=== PATIENT | male | born 1985 | race Hispanic/Latino ===

== ENCOUNTER → 2018-12-03 | Outpatient (CLI) | payer OTHER ==
[~2018-12-03] MED LIST: IOHEXOL-350 75 ML VIAL IV ONE
== END | disposition home or self-care (01) ==
LOC: RAH 10:13
PROVIDERS: ATTEND Internal Medicine
DX: N48.89 Other specified disorders of penis (principal); N50.9 Disorder of male genital organs, unspecified
CPT/HCPCS: 74178; Q9967

== ENCOUNTER 2025-03-11 10:02 | Emergency (ER) | payer OTHER ==
[~2025-03-11] VITALS: Ht 180.3 cm; Wt 117.9 kg
--- NOTE | 2025-03-11 10:15 | ERN ---
ED Note History of Present Illness Stated Complaint: CP Chief Complaint: Chest Pain Time Seen by MD: 10:07 Dictation: PATIENT IS A 39-YEAR-OLD DIABETIC MALE THAT IS HERE TODAY VISITING HIS FATHER IN THE EMERGENCY ROOM. HIS FATHER IS HERE FOR CHEST PAIN AND PRESSURE, WHEN THE PATIENT GOT HERE AND WAS VISITING HIS FATHER IN TRIAGE, HE STARTED COMPLAINING OF CHEST PAIN PRESSURE ADDITIONALLY. STATES THE PAIN DOES NOT RADIATE, NO NAUSEA VOMITING NO JAW PAIN NO ARM PAIN NO BACK PAIN. STATES HE HAS HAD SIMILAR PAIN IN THE PAST WHEN HE IS ANXIOUS SAYS HIS DOCTOR IS [facility] AND PRESCRIBES HIS METFORMIN HOWEVER, HE HAS NEVER GONE TO SEE HIS DOCTOR FOR CHEST PAIN PRESSURE. PATIENT NOTED TO BE EXTREMELY ANXIOUS. Allergies: Coded Allergies: No Known Drug Allergies (Unverified Allergy, Unknown, 03/11/25) Past Medical History Past Medical History: Diabetes-Type II RN Note Reviewed/Agreed w/PFSH: Yes Review of System Dictation CONSTITUTIONAL: NEGATIVE EXCEPT FOR HPI HEAD/FACE: NEGATIVE EXCEPT FOR HPI EENT: NEGATIVE EXCEPT FOR HPI RESPIRATORY: NEGATIVE EXCEPT FOR HPI CHEST PAIN/PRESSURE GASTROINTESTINAL/ABDOMINAL: NEGATIVE EXCEPT FOR HPI GENITOURINARY: NEGATIVE EXCEPT FOR HPI MUSCULOSKELETAL: NEGATIVE EXCEPT FOR HPI INTEGUMENTARY: NEGATIVE EXCEPT FOR HPI NEUROLOGICAL/PSYCH: NEGATIVE EXCEPT FOR HPI HEMATOLOGIC/LYMPHATIC: NEGATIVE EXCEPT FOR HPI ALL SYSTEMS NEGATIVE, EXCEPT NOTED ABOVE. 13 POINT REVIEW OF SYSTEMS ASSESSED AND ALL NEGATIVE EXCEPT FOR ABOVE. Initial Vital Sign VS Vital Signs Date Time Temp Pulse Resp B/P (MAP) Pulse Ox O2 Delivery O2 Flow Rate FiO2 03/11/25 10:06 97.5 89 18 143/100 100 Room Air 0 03/11/25 10:15 21 Physical Exam Dictation VITAL SIGNS REVIEWED GENERAL APPEARANCE: ALERT, ORIENTED X 3, MODERATE ACUTE DISTRESS, WELL DEVELOPED, NOURISHED. OBESE/TEARFUL HEAD AND FACE: NON-TRAUMATIC. EYES: PERRL, PINK CONJUNCTIVAS, EYELID NO TRAUMA, ANTERIOR CHAMBER WITH ARCUS SENILIS. EARS: PINNAS INTACT AND NO SIGNS OF TRAUMA OR ERYTHEMA EAR CANALS CLEAR AND NO DISCHARGE TM NO ERYTHEMA NOSE: NO DISCHARGE, NO BLEEDING. OROPHARYNX: MOUTH NORMAL, TONGUE PINK, PHARYNX CLEAR,NO ERYTHEMA, TONSILS NO EXUDATES, NO ABSCESSES NOTED, MUCOUS MEMBRANE MOIST NECK: SUPPLE, NON-TENDER, NO THYROMEGALY, NO MASSES, NO JVD, NO BRUITS BREAST:DEFERRED CHEST:NO TENDERNESS, NO CREPITUS, NO PARADOXICAL MOVEMENT, NO RETRACTIONS LUNGS:CLEAR, WELL-VENTILATED, SYMMETRIC, NO RALES, NO WHEEZING, NO RHONCHI, NO STRIDOR, GOOD BREATH SOUNDS BILATERALLY HEART: REGULAR RATE, REGULAR RHYTHM, NO MURMUR, NO GALLOPS VASCULAR: NO PERIPHERAL EDEMA, ABDOMEN: SOFT, POSITIVE BOWEL SOUNDS, NONDISTENDED, NO GUARDING, NONTENDER, NO REBOUND, NO MASSES NO HEPATOMEGALY, NO SPLENOMEGALY, NO RUBIO'S SIGN, NO HERNIAS. RECTAL: DEFERRED GENITAL: DEFERRED NEUROLOGICAL: NORMAL SPEECH, MOTOR FUNCTION INTACT, SENSORY FUNCTION INTACT MUSCULOSKELETAL: NECK NONTENDER, FULL RANGE OF MOTION, BACK NONTENDER, FULL RANGE OF MOTION, EXTREMITIES: NONTENDER, FULL RANGE OF MOTION SKIN: COLOR PINK, DRY, NO TURGOR, NO RASH, NO LACERATIONS, NO ABRASIONS, NO CONTUSIONS. LYMPHATIC: DEFERRED Results (Laboratory/Radiology) Laboratory/Radiology Laboratory Tests Test 03/11/25 10:48 03/11/25 12:32 Sodium Level 139 mmol/L (136-145) Potassium Level 3.9 mmol/L (3.5-5.1) Chloride Level 103 mmol/L (101-111) Carbon Dioxide Level 30 mmol/L (21-32) Blood Urea Nitrogen 14 mg/dL (7-18) Creatinine 0.9 mg/dL (0.5-1.3) Glomerular Filtration Rate Calc 111 mL/min (>90) Random Glucose 140 mg/dL (70-105) H Total Calcium 9.3 mg/dL (8.5-10.1) Magnesium Level 2.10 mg/dL (1.80-2.40) Troponin I High Sensitivity 4 ng/L (4-75) < 4 ng/L (4-75) L White Blood Count 6.6 K/uL (4.8-10.8) Red Blood Count 4.91 MIL/uL (4.50-6.20) Hemoglobin 14.3 g/dL (14.0-18.0) Hematocrit 42.4 % (42-54) Mean Corpuscular Volume 86.4 fL (79-99) Mean Corpuscular Hemoglobin 29.1 pg (27.0-33.0) Mean Corpuscular Hemoglobin Concent 33.7 g/dL (32.0-36.0) Red Cell Distribution Width 13.0 % (11.0-15.5) Platelet Count 354 K/uL (130-400) Mean Platelet Volume 9.0 fL (7.5-10.5) Immature Granulocyte % (Auto) 0.2 % (0-1) Neutrophils (%) (Auto) 49.3 % (40.0-77.0) Lymphocytes (%) (Auto) 40.0 % (21.0-51.0) Monocytes (%) (Auto) 6.4 % (3.0-13.0) Eosinophils (%) (Auto) 3.0 % (0.0-8.0) Basophils (%) (Auto) 1.1 % (0.0-5.0) Neutrophils # (Auto) 3.3 K/uL (1.8-7.7) Lymphocytes # (Auto) 2.6 K/uL (1.0-4.8) Monocytes # (Auto) 0.4 K/uL (0.1-1.0) Eosinophils # (Auto) 0.20 K/uL (0.00-0.70) Basophils # (Auto) 0.07 K/uL (0.00-0.20) Absolute Immature Granulocyte (auto 0.01 K/uL (0-1) Nucleated Red Blood Cells 0.0 % (0.0-0.19) AM: CR Chest, 1 View. CLINICAL HISTORY: CHEST PAIN COMPARISON: None provided. FINDINGS: LUNGS: The lungs show no infiltrate or other acute finding. PLEURAL SPACES: No pleural effusion or pneumothorax. MEDIASTINUM: Cardiac size and mediastinal contours within normal limits. BONES: No acute osseous abnormality. IMPRESSION: No acute cardiopulmonary pathology is evident. /[facility] Labs Reviewed?: Yes EKG: (+) NSR EKG Comment: EKG NORMAL SINUS RHYTHM/HEART RATE 95/AXIS NORMAL/NO ECTOPY 1328 SECONDS EKGS SINUS RHYTHM/HEART RATE 60/EARLY REPOLARIZATION SEEN V2 THREE AND FOUR. NO AXIS CHANGE HIGH SENSITIVITY TROPONIN ON 2ND DRAW IS LESS THAN FOUR, HEART SCORE IS ONE ED Course ED Course Orders Procedure Category Date Status Time Chest 1vw RAD 03/11/25 Resulted 10:12 12 Lead Ekg Tracing- EKG 03/11/25 Complete Technical 10:12 Magnesium LAB 03/11/25 Complete 10:12 Troponin I High LAB 03/11/25 Complete Sensitivity 10:12 Aspirin 325mg Tab PHA 03/11/25 Complete (Aspirin 325mg Tab) 10:30 Basic Metabolic Panel LAB 03/11/25 Complete 10:12 Cbc With Differential LAB 03/11/25 Complete 12:20 Troponin I High LAB 03/11/25 Complete Sensitivity 12:20 12 Lead Ekg Tracing- EKG 03/11/25 Logged Technical 13:14 Current Medications Medications (Trade) Dose Ordered Sig/Cyndy Route PRN Reason Start Time Stop Time Status Last Admin Dose Admin Aspirin (Aspirin 325mg Tab) 325 mg ONCE ONCE PO 03/11/25 10:30 03/11/25 10:31 DC 03/11/25 10:33 Vital Signs Date Time Temp Pulse Resp B/P (MAP) Pulse Ox O2 Delivery O2 Flow Rate FiO2 03/11/25 10:15 97.5 89 18 143/100 100 Room Air* 0 21 03/11/25 10:06 97.5 89 18 143/100 100 Room Air 0 HEART Score Response (Comments) Value History: Low suspicion (0) 0 EKG: Normal 0 Risk Factors: 1-2 risk factors (+1) 1 Initial Troponin: Normal limit (0) 0 Total 1 Medical Decision Making MDM 1350/MDM: DIFFERENTIAL DIAGNOSIS: ACS/AMI/ELECTROLYTE IMBALANCE/DEHYDRATION/PNEUMONIA/BRONCHITIS/ANXIETY RATIONALE: TESTS CONSIDERED AND ORDERED SECONDARY TO SHARED DECISION MAKING INCLUDE: EKG/LABS/ PREVIOUS OUTSIDE RECORDS REVIEWED: OLD ER VISITS. RISK OF COMPLICATION AND/OR MORBIDITY OR MORTALITY OF PATIENT MANAGEMENT: NONE MEDICATIONS-PER MEDICATION RECONCILIATION NEED FOR HOSPITALIZATION: PATIENT DOES NOT MEET CRITERIA FOR HOSPITALIZATION. RADIOLOGY NO NEED FOR EMERGENCY MAJOR/MINOR SURGERY: NO THERE ARE NO SOCIAL CONCERNS WITH THIS PATIENT. PRESCRIPTION DRUG MANAGEMENT NONE PRESCRIPTIONS WILL INCLUDE SYMPTOMATIC CARE PATIENT'S PRIOR EXTERNAL MEDICAL RECORDS FROM OTHER ER VISITS WERE REVIEWED BY ME INDICATED. PRIOR TESTING AND RESULTS FROM PREVIOUS VISITS WERE REVIEWED. PRIOR TESTS WERE TAKEN INTO ACCOUNT WITH MEDICAL DECISION MAKING AND RESOURCE UTILIZATION, INDEPENDENT HISTORIAN/HISTORIANS WERE USED TO OBTAIN COMPLETE MEDICAL HISTORY. I INDEPENDENTLY INTERPRETED THE TEST THAT WERE PERFORMED, RESULTS WERE REVIEWED BY ME AND CONSIDERED FINDINGS ON RADIOLOGY IF ORDERED. MEDICAL MANAGEMENT AND EXAMINATION INTERPRETATION DISCUSSIONS WERE HAD BY ME WITH OTHER QUALIFIED HEALTHCARE PROFESSIONALS INDICATED FOR THE PATIENT'S CARE. DX & DISP Disposition: Inpatient Decision to Admit Time: 13:51 Departure Impression: Primary Impression: Atypical chest pain Additional Impressions: Anxiety reaction, Diabetes mellitus with hyperglycemia Condition: Stable Additional Instructions: FOLLOW-UP WITH PRIMARY CARE PROVIDER IN 1 TO 2 DAYS. TAKE MEDICATIONS DIRECTED HERE IN THE EMERGENCY ROOM. OKAY TO CONTINUE HOME MEDICATIONS UNLESS OTHERWISE DISCUSSED DURING YOUR VISIT IN THE EMERGENCY ROOM TODAY. RETURN TO YOUR NEAREST EMERGENCY ROOM IF SYMPTOMS WORSEN OR IF THERE IS NO IMPROVEMENT. CALL 911 IF YOU NEED IMMEDIATE ASSISTANCE. TAKE TYLENOL OR MOTRIN [id number] NEEDED AND IF NO CONTRAINDICATIONS ARE PRESENT. INCREASE ORAL HYDRATION. A WOUND CULTURE OR URINE CULTURE WAS ORDERED HERE IN THE EMERGENCY ROOM DEPARTMENT PLEASE FOLLOW-UP WITH PRIMARY CARE PROVIDER AND ADVISE THEM TO GET REPEAT PORTS FROM OUR FACILITY. IF YOU HAD ANY LEFTY WRAP/SPLINTS THAT WERE APPLIED HERE, PLEASE DO NOT REMOVE THEM UNTIL YOU SEE YOUR PRIMARY CARE OR SPECIALTY. TYLENOL OR MOTRIN [id number] NEEDED FOR PAIN. FOLLOW UP WITH YOUR PRIMARY CARE DOCTOR IN THE NEXT 1-2 DAYS NEEDED. Referrals: ARMIN BUI MD (PCP) Time of Disposition: 13:52 I have reviewed the case, and I agree with, Diagnosis and Plan DANNIE OCONNOR NP Mar 11, 2025 10:15
[2025-03-11] MEDS: ASPIRIN 325MG TAB PO ONE (10:33)
--- NOTE | 2025-03-11 10:33 | EKG ---
[facility] Test Date: 2025-03-11 Test Time: 10:06:57 Pat Name: ANAYELI CABALLERO Department: [facility] Room: Gender: M Extension Course Coordinator: [id number] : 1985 Requested By: DANNIE OCONNOR Order Number: [id number] Reading MD: Kiki Aparicio Measurements Intervals [place] Rate: 95 P: 48 NV: 156 QRS: 66 QRSD: 84 T: 21 QT: 345 QTc: 435 Interpretive Statements Sinus rhythm No previous ECG available for comparison Electronically Signed On 03-11-2025 14:51:33 CDT by Kiki Aparicio Please click the below link to view image of tracing.
[2025-03-11 11:30] LABS: CREATININE 0.9 mg/dL (0.5-1.3); GLOMERULAR FILTR. RATE CALC 111.0 mL/min (>90); GLUCOSE,RANDOM 140.0 mg/dL (70-105); SODIUM SERUM 139.0 mmol/L (136-145); UREA NITROGEN, BLOOD 14.0 mg/dL (7-18)
--- NOTE | 2025-03-11 11:45 | HMCIMG ---
EXAM: CR Chest, 1 View. CLINICAL HISTORY: CHEST PAIN COMPARISON: None provided. FINDINGS: LUNGS: The lungs show no infiltrate or other acute finding. PLEURAL SPACES: No pleural effusion or pneumothorax. MEDIASTINUM: Cardiac size and mediastinal contours within normal limits. BONES: No acute osseous abnormality. IMPRESSION: No acute cardiopulmonary pathology is evident. /[place]
[2025-03-11 12:37] LABS: IMMATURE GRANULOCYTE ABSOLUTE 0.01 K/uL (0-1); NUCLEATED RED BLOOD CELLS 0.0 % (0.0-0.19); PLATELET COUNT (AUTO) 354 K/uL (130-400); RED BLOOD CELL COUNT(AUTO) 4.91 MIL/uL (4.50-6.20); RED CELL DISTRIBUTION WIDTH 13.0 % (11.0-15.5); WHITE BLOOD COUNT (AUTO) 6.6 K/uL (4.8-10.8)
[2025-03-11 13:54] VITALS: BP 141/89; PULSE 85; RESP 18; TEMP 97.5; O2SAT 100
--- NOTE | 2025-03-11 14:01 | EKG ---
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
== END 2025-03-11 13:58 | disposition home or self-care (01) ==
LOC: EDH 10:02
DX: R07.89 Other chest pain (principal); F41.1 Generalized anxiety disorder; E11.65 Type 2 diabetes mellitus with hyperglycemia
CPT/HCPCS: 36415; 71045; 80048; 83735; 84484; 85025; 93005; 99285